=== PATIENT | male | born 1945 | race African-American/Black ===

== ENCOUNTER 2018-09-30 08:20 | Inpatient (IN) | payer MEDICARE, OTHER ==
[2018-09-30] MEDS ORDERED: MAGNESIUM SULFATE/D5W 1 GM/100 ML RTUPB IV ONE (08:57)
[2018-09-30] MEDS ORDERED: IPRATROPIUM/ALBUTEROL 0.5-2.5 MG/3 ML AMPUL NEB ONE (08:57)
[2018-09-30] MEDS ORDERED: ALBUTEROL SULFATE 0.083% NEB 2.5 MG/3 ML AMPUL NEB ONE ×2 (08:58→10:40)
[2018-09-30] MEDS ORDERED: METHYLPREDNISOLONE INJ 125 MG/2 ML SDV IV ONE (08:58)
[2018-09-30 09:18] LABS: ABSOLUTE LYMPHOCYTES (AUTO) 0.5 10^3/uL (0.5-4.7); ABSOLUTE MONOCYTES (AUTO) 0.4 10^3/uL (0.1-1.4); ABSOLUTE NEUT (AUTO) 5.2 10^3/uL (1.7-8.2); BASOPHILS % (AUTO) 0.2 % (0-2); EOSINOPHILS % (AUTO) 0.1 % (0-6); HEMATOCRIT 37.7 % (37.9-51.0); HEMOGLOBIN 12.5 g/dL (13.5-17.0); LYMPHOCYTES % (AUTO) 8.7 % (13-45); MEAN CORPUSCULAR HEMOGLOBIN 31.3 pg (27.0-33.4); MEAN CORPUSCULAR HGB CONC 33.2 g/dL (32.0-36.0); MEAN CORPUSCULAR VOLUME 94 fl (80-97); PLATELET COUNT 172 10^3/uL (150-450); RED CELL DISTRIBUTION WIDTH 14.6 % (11.5-14.0); TOTAL CELLS COUNTED % (AUTO) 100 %; WHITE BLOOD COUNT 6.1 10^3/uL (4.0-10.5)
--- NOTE | 2018-09-30 09:33 | RADIOLOGY REPORT (SQ) ---
EXAM DESCRIPTION: CHEST SINGLE VIEW COMPLETED DATE/TIME: 09/30/2018 9:20 am REASON FOR STUDY: Cough, congestion, wheezing COMPARISON: None. EXAM PARAMETERS: NUMBER OF VIEWS: One view. TECHNIQUE: Single frontal radiographic view of the chest acquired. RADIATION DOSE: NA LIMITATIONS: None. FINDINGS: LUNGS AND PLEURA: Calcified granuloma left lower lobe. No acute infiltrates. No pleural effusion or pneumothorax. MEDIASTINUM AND HILAR STRUCTURES: No masses. Contour normal. HEART AND VASCULAR STRUCTURES: Heart normal in size. Normal vasculature. BONES: No acute findings. HARDWARE: None in the chest. OTHER: No other significant finding. IMPRESSION: No acute infiltrates TECHNICAL DOCUMENTATION: JOB ID: [id number] [employer]- All Rights Reserved Reading location - IP/workstation name: [email or web address]
[2018-09-30 09:43] LABS: ALANINE AMINOTRANSFERASE 40 U/L (21-72); ALBUMIN 3.8 g/dL (3.5-5.0); ALKALINE PHOSPHATASE 94 U/L (38-126); ANION GAP 7 (5-19); ASPARTATE AMINO TRANSFERASE 34 U/L (17-59); BILIRUBIN,DIRECT 0.2 mg/dL (0.0-0.4); BILIRUBIN,TOTAL 0.7 mg/dL (0.2-1.3); BLOOD UREA NITROGEN 14 mg/dL (7-20); CALCIUM 9.7 mg/dL (8.4-10.2); CARBON DIOXIDE 25 mmol/L (22-30); CHLORIDE 108 mmol/L (98-107); CREATINE KINASE 354 U/L (55-170); GLUCOSE 116 mg/dL (75-110); POTASSIUM 3.9 mmol/L (3.6-5.0); SODIUM 139.6 mmol/L (137-145); TOTAL PROTEIN 6.5 g/dL (6.3-8.2)
[2018-09-30 09:55] LABS: CREATINE KINASE MB 3.92 ng/mL (<4.55)
[2018-09-30 10:01] LABS: TROPONIN I < 0.012 ng/mL
[2018-09-30 10:46] LABS: APPEARANCE,URINE CLEAR; BILIRUBIN,URINE NEGATIVE (NEGATIVE); COLOR,URINE YELLOW; GLUCOSE, URINE NEGATIVE (NEGATIVE); KETONES,URINE NEGATIVE (NEGATIVE); LEUKOCYTE ESTERASE,URINE NEGATIVE (NEGATIVE); NITRITE,URINE NEGATIVE (NEGATIVE); PROTEIN,URINE NEGATIVE (NEGATIVE); URINE SPECIFIC GRAVITY 1.015; UROBILINOGEN,URINE NEGATIVE mg/dL (<2.0)
--- NOTE | 2018-09-30 12:31 | ER Document Report ---
Entered by ISAAC LIRA SCRIBE 09/30/18 0904 Acting as scribe for:FLORENTINO RODRIGUES MD ED General - General Chief Complaint: Breathing Difficulty Stated Complaint: WHEEZING/SHORT OF BREATH Time Seen by Provider: 09/30/18 08:42 Primary Care Provider: CATHIE MCKEE [NO LOCAL MD] - Follow up as needed Mode of Arrival: Ambulatory Information source: Patient Notes: Patient is a 73 year old male with HTN, HLD, COPD, BPH presents to the emergency department complaining of shortness of breath onset 2 weeks ago worsening today. Patient states he is short of breath on exertion and also complains of a productive cough with white/light green sputum. He states he has an inhaler at home which only helps temporarily. He also complains of nasal congestion and bilateral lower extremity swelling. He denies any fevers. He reports being on blood pressure medication but has yet to take it this morning. He also states he is on Lasix PRN as needed but has not recently taken any. Patient's PCP is Dr. Ortiz. The patient's family arrived a little later. His daughter is a nurse and reports that his oxygen saturation dropped as low as 73% last night while he was sleeping. He is not on home O2. TRAVEL OUTSIDE OF THE [place] IN LAST 30 DAYS: No - Related Data Allergies/Adverse Reactions: No Known Allergies Allergy (Verified 09/30/18 08:22) Past Medical History - General Information source: Patient - Social History Smoking Status: Current Every Day Smoker Cigarette use (# per day): Yes - 1 PPD for 50+ years Chew tobacco use (# tins/day): No Smoking Education Provided: No Frequency of alcohol use: None Family History: Reviewed & Not Pertinent Review of Systems - Review of Systems Constitutional: No symptoms reported EENT: See HPI, Nose congestion Cardiovascular: No symptoms reported Respiratory: See HPI, Cough, Short of breath Gastrointestinal: No symptoms reported Genitourinary: No symptoms reported Male Genitourinary: No symptoms reported Musculoskeletal: No symptoms reported Skin: No symptoms reported Hematologic/Lymphatic: No symptoms reported Neurological/Psychological: No symptoms reported -: Yes All other systems reviewed and negative Physical Exam - Vital signs Vitals: Temp Pulse Resp BP Pulse Ox 97.8 F 73 22 H 177/85 H 96 09/30/18 08:25 09/30/18 08:25 04/01/19 08:25 09/30/18 08:25 09/30/18 08:25 - Notes Notes: GENERAL: Alert, interacts well. No acute distress. HEAD: Normocephalic, atraumatic. EYES: Pupils equal, round, and reactive to light. Extraocular movements intact. ENT: Oral mucosa moist, tongue midline. NECK: Full range of motion. Supple. Trachea midline. LUNGS: Diffuse wheezes and rhonchi. Inspiratory retractions. No respiratory distress. HEART: Regular rate and rhythm. No murmurs, gallops, or rubs. ABDOMEN: Soft, non-tender. Non-distended. Bowel sounds present in all 4 quadrants. No guarding, rigidity, or rebound. EXTREMITIES: Moves all 4 extremities spontaneously. Pitting edema in the BLE. NEUROLOGICAL: Alert and oriented x3. Normal speech. PSYCH: Normal affect, normal mood. SKIN: Warm, dry, normal turgor. No rashes or lesions noted. Course - Re-evaluation Re-evalutation: 09/30/18 11:33 After 3 breathing treatments, Solu-Medrol, magnesium sulfate IV, the patient is much improved, however he still does have some slight retracting and does still look a little apprehensive. When I have him take a deep breath and cough there is a lot of inspiratory and expiratory wheezes and expiratory rhonchi. - Vital Signs Vital signs: Temp Pulse Resp BP Pulse Ox 97.8 F 73 15 170/90 H 96 09/30/18 08:25 09/30/18 08:25 09/30/18 11:01 09/30/18 11:01 09/30/18 11:01 - Laboratory Result Diagrams: 09/30/18 09:07 09/30/18 09:07 Laboratory results interpreted by me: 09/30/18 09/30/18 09:07 09:07 RBC 4.00 L Hgb 12.5 L Hct 37.7 L RDW 14.6 H Seg Neutrophils % 85.0 H Lymphocytes % 8.7 L Chloride 108 H Glucose 116 H Magnesium 2.5 H Creatine Kinase 354 H - Diagnostic Test Radiology reviewed: Image reviewed, Reports reviewed - Chest x-ray does not show any acute process. - EKG Interpretation by [facility] EKG shows normal: Sinus rhythm, North, Intervals, QRS Complexes, ST-T Waves Rate: Normal - 68 Rhythm: NSR Voltage: Consistant with LV[facility] - Consults Dr. Desai Time consulted: 11:27 Consulted provider: will come to ER Critical Care Note - Critical Care Note Total time excluding time spent on procedures (mins): 35 Discharge - Discharge Clinical Impression: COPD with acute exacerbation, Tobacco dependence due to cigarettes Condition: Fair Disposition: ADMITTED INPATIENT Admitting Provider: Hospitalist Unit Admitted: Telemetry Referrals: LOCALMD,NO [NO LOCAL MD] - Follow up as needed I personally performed the services described in the documentation, reviewed and edited the documentation which was dictated to the scribe in my presence, and it accurately records my words and actions.
--- NOTE | 2018-09-30 12:51 | EKG REPORT ---
SEVERITY:- ABNORMAL ECG - SINUS RHYTHM LEFT VENTRICULAR HYPERTROPHY : Confirmed by: Dagoberto Arzate MD 30-Sep-2018 12:50:02
[2018-09-30] MEDS ORDERED: METHYLPREDNISOLONE INJ 40 MG/1 ML SDV IV SCH (14:00)
--- NOTE | 2018-09-30 14:15 | PDOC H&P ---
History of Present Illness Admission Date/PCP: 09/30/18 12:41 History of Present Illness: VINEET CABRERA is a 73 year old male with a history of COPD and hypertension who presents with a 2-day history of progressive shortness of breath. He has had a little bit of a nonproductive cough. He is not had any fevers. He has not had orthopnea. He denies any wheezing, but he says that he was taking bronchodilators at home and they did help. He said he is been taking all of his COPD medication as prescribed. He is not had any changes in his medication lately. EMS gave him a couple of breathing treatments and a shot of Solu-Medrol and he was put on oxygen because apparently his oxygen saturations were less than 90% for them. Is being admitted for further management. Past Medical History Pulmonary Medical History: Reports: Asthma Social History Smoking Status: Current Every Day Smoker Family History Family History: Reviewed & Not Pertinent, Hyperlipidemia, Hypertension Parental Family History Reviewed: Yes Children Family History Reviewed: Yes Sibling(s) Family History Reviewed.: Yes Medication/Allergy Home Medications: Albuterol Sulfate [Proair Hfa Inhalation Aerosol 8.5 gm Mdi] 1 puff IH Q6HP PRN 09/30/18 Amlodipine Besylate [Norvasc 10 mg Tablet] 10 mg PO DAILY 09/30/18 Finasteride [Proscar 5 mg Tablet] 5 mg PO DAILY 09/30/18 Furosemide [Lasix 40 mg Tablet] 40 mg PO QAM 09/30/18 Ipratropium/Albuterol Sulfate [Duoneb 3 ml Ampul] 3 ml NEB RTQ6HP PRN 09/30/18 Metoprolol Tartrate [Lopressor 50 mg Tablet] 75 mg PO DAILY 09/30/18 Pantoprazole Sodium [Protonix [address] Tablet] 40 mg PO BID 09/30/18 Potassium Chloride [Klor-Con 8] 16 meq PO BID 09/30/18 Pravastatin Sodium [Pravachol] 40 mg PO QHS 09/30/18 Allergies/Adverse Reactions: No Known Allergies Allergy (Verified 09/30/18 08:22) Review of Systems All systems: reviewed and no additional remarkable complaints except as stated - All systems were reviewed and were negative except as noted in the HPI Physical Exam Vital Signs: Temp Pulse Resp BP Pulse Ox 97.8 F 73 18 175/98 H 96 09/30/18 08:25 09/30/18 08:25 09/30/18 14:01 09/30/18 14:01 09/30/18 14:01 Intake & Output 09/29/18 09/30/18 10/01/18 06:59 06:59 06:59 Intake Total 100 Balance 100 Weight 74.9 kg General appearance: PRESENT: cooperative, disheveled, mild distress Head exam: PRESENT: atraumatic, normocephalic Eye exam: PRESENT: EOMI, PERRLA. ABSENT: conjunctival injection, nystagmus, scleral icterus Ear exam: PRESENT: normal external ear exam Mouth exam: PRESENT: moist, neck supple Throat exam: ABSENT: post pharyngeal erythema Neck exam: PRESENT: full ROM. ABSENT: carotid bruit, JVD, lymphadenopathy, meningismus, tenderness, thyromegaly Respiratory exam: PRESENT: accessory muscle use, prolonged expiratory phas, symmetrical, wheezes. ABSENT: chest wall tenderness, crackles, rhonchi, stridor, tachypnea, unlabored Cardiovascular exam: PRESENT: RRR, +S1, +S2 Pulses: PRESENT: normal carotid pulses Vascular exam: PRESENT: normal capillary refill GI/Abdominal exam: PRESENT: normal bowel sounds, soft. ABSENT: distended, guarding, rebound, tenderness Extremities exam: ABSENT: clubbing, pedal edema Musculoskeletal exam: PRESENT: normal inspection. ABSENT: deformity Neurological exam: PRESENT: alert, awake, oriented to person, oriented to place, oriented to time, oriented to situation Psychiatric exam: PRESENT: appropriate affect, normal mood Skin exam: PRESENT: dry, warm Results Laboratory Results: 09/30/18 09:07 09/30/18 09:07 09/30/18 09/30/18 09/30/18 09:07 09:07 10:28 WBC 6.1 RBC 4.00 L Hgb 12.5 L Hct 37.7 L MCV 94 MCH 31.3 MCHC 33.2 RDW 14.6 H Plt Count 172 Seg Neutrophils % 85.0 H Lymphocytes % 8.7 L Monocytes % 6.0 Eosinophils % 0.1 Basophils % 0.2 Absolute Neutrophils 5.2 Absolute Lymphocytes 0.5 Absolute Monocytes 0.4 Absolute Eosinophils 0.0 Absolute Basophils 0.0 Sodium 139.6 Potassium 3.9 Chloride 108 H Carbon Dioxide 25 Anion Gap 7 BUN 14 Creatinine 0.87 Est GFR ( Amer) > 60 Est GFR (Non-Af Amer) > 60 Glucose 116 H Calcium 9.7 Magnesium 2.5 H Total Bilirubin 0.7 AST 34 ALT 40 Alkaline Phosphatase 94 Total Protein 6.5 Albumin 3.8 Urine Color YELLOW Urine Appearance CLEAR Urine pH 7.0 Ur Specific [place] 1.015 Urine Protein NEGATIVE Urine Glucose (UA) NEGATIVE Urine Ketones NEGATIVE Urine Blood NEGATIVE Urine Nitrite NEGATIVE Ur Leukocyte Esterase NEGATIVE Urine WBC (Auto) 1 Urine RBC (Auto) 1 09/30/18 09/30/18 09:07 09:07 Creatine Kinase 354 H CK-MB (CK-2) 3.92 Troponin I < 0.012 Impressions: Chest X-Ray 09/30/18 08:57 IMPRESSION: No acute infiltrates Assessment and Plan - Diagnosis (1) Acute hypoxemic respiratory failure Is this a current diagnosis for this admission?: Yes Plan: He had an SPO2 less than 90% on room air. Continue supplemental O2 to maintain SPO2 greater than 90%. (2) Chronic obstructive pulmonary disease with acute exacerbation Is this a current diagnosis for this admission?: Yes Plan: We will treat with steroids, antibiotics, and bronchodilators. Monitor for response and adjust treatment accordingly. We will continue his home medications once we can get a list of them. (3) Hypertension Qualifiers: Hypertension type: essential hypertension Qualified Code(s): I10 - Essential (primary) hypertension Is this a current diagnosis for this admission?: Yes Plan: He had just taken his medicines right before they took his last blood pressure so we will monitor his pressure to see if he needs further adjustment of his home regimen. - Time Time Spent with patient: 35 or more minutes - Inpatient Certification Based on my medical assessment, after consideration of the patient's comorbidities, presenting symptoms, or acuity I expect that the services needed warrant INPATIENT care.: Yes I certify that my determination is in accordance with my understanding of Medicare's requirements for reasonable and necessary INPATIENT services [42 CFR 412.3e].: Yes Medical Necessity: Need Close Monitoring Due to Risk of Patient Decompensation, Need For Continuous Telemetry Monitoring, Need for Nebulizer Therapy and Monitoring of Response, Risk of Complication if Not Cared For in Hospital
[2018-09-30] MEDS: IPRATROPIUM/ALBUTEROL 0.5-2.5 MG/3 ML AMPUL NEB SCH ×2 (14:52→19:41)
[2018-09-30] MEDS: HEPARIN SOD (PORCINE) 5,000 UNIT/ML 1 ML SYRINGE SUBCUT SCH ×2 (15:19→22:40)
[2018-09-30] MEDS ORDERED: HYDRALAZINE HCL INJ/PF 20 MG/1 ML SDV ONE (17:13)
[2018-09-30] MEDS: METHYLPREDNISOLONE INJ 40 MG/1 ML SDV IV SCH (17:18)
[2018-09-30] MEDS ORDERED: HYDRALAZINE HCL INJ/PF 20 MG/1 ML SDV IV PRN (17:19)
[2018-09-30] MEDS ORDERED: ALBUTEROL SULFATE HFA (90 MCG/PUFF) 200 PUFF/8.5 GM MDI IH PRN (17:39)
[2018-09-30] MEDS ORDERED: IPRATROPIUM/ALBUTEROL 0.5-2.5 MG/3 ML AMPUL NEB PRN (17:39)
[2018-09-30] MEDS ORDERED: POTASSIUM CHLORIDE 16 MEQ PO SCH (18:00)
[2018-09-30] MEDS: PANTOPRAZOLE SODIUM 40 MG TABLET.DR PO SCH (18:01)
--- NOTE | 2018-09-30 18:43 | ADVANCED CARE ---
- Diagnosis (1) Acute hypoxemic respiratory failure Diagnosis Current: Yes (2) Chronic obstructive pulmonary disease with acute exacerbation Diagnosis Current: Yes (3) Hypertension Diagnosis Current: Yes Resuscitation Status: Full Code Discussion: Patient feels that he has a very high quality of life and wants everything done to preserve his life at this point. Time Spent: 10
[2018-09-30] MEDS ORDERED: (PENDING PHARMACY ID) (Pravastatin Sodium [Pravachol] 40 MG) PO SCH (22:00)
[2018-09-30] MEDS: DOXYCYCLINE HYCLATE 100 MG TABLET PO SCH (22:40)
[2018-09-30] MEDS: ATORVASTATIN CALCIUM 10 MG TABLET PO SCH (22:40)
[2018-10-01] MEDS: IPRATROPIUM/ALBUTEROL 0.5-2.5 MG/3 ML AMPUL NEB SCH ×6 (02:59→23:56)
[2018-10-01] MEDS: METHYLPREDNISOLONE INJ 40 MG/1 ML SDV IV SCH ×3 (04:49→17:20)
[2018-10-01] MEDS: HEPARIN SOD (PORCINE) 5,000 UNIT/ML 1 ML SYRINGE SUBCUT SCH ×3 (05:24→21:22)
[2018-10-01 05:36] LABS: HEMATOCRIT 37.5 % (37.9-51.0); HEMOGLOBIN 12.3 g/dL (13.5-17.0); MEAN CORPUSCULAR HEMOGLOBIN 30.9 pg (27.0-33.4); MEAN CORPUSCULAR HGB CONC 32.8 g/dL (32.0-36.0); MEAN CORPUSCULAR VOLUME 94 fl (80-97); PLATELET COUNT 162 10^3/uL (150-450); RED BLOOD COUNT 3.98 10^6/uL (4.35-5.55); RED CELL DISTRIBUTION WIDTH 14.8 % (11.5-14.0); WHITE BLOOD COUNT 6.2 10^3/uL (4.0-10.5)
[2018-10-01 06:06] LABS: ANION GAP 6 (5-19); BLOOD UREA NITROGEN 22 mg/dL (7-20); CALCIUM 9.5 mg/dL (8.4-10.2); CARBON DIOXIDE 26 mmol/L (22-30); CHLORIDE 104 mmol/L (98-107); GLUCOSE 106 mg/dL (75-110); POTASSIUM 4.1 mmol/L (3.6-5.0); SODIUM 136.2 mmol/L (137-145)
[2018-10-01] MEDS ORDERED: ACETAMINOPHEN 325 MG TABLET ONE (10:31)
[2018-10-01] MEDS: ACETAMINOPHEN 325 MG TABLET PO PRN (10:32)
[2018-10-01] MEDS: AMLODIPINE BESYLATE 10 MG TABLET PO SCH (10:33)
[2018-10-01] MEDS: PANTOPRAZOLE SODIUM 40 MG TABLET.DR PO SCH ×2 (10:33→17:20)
[2018-10-01] MEDS: FUROSEMIDE 40 MG TABLET PO SCH (10:33)
[2018-10-01] MEDS: FINASTERIDE 5 MG TABLET PO SCH (10:33)
[2018-10-01] MEDS: METOPROLOL TARTRATE 50 MG TABLET PO SCH (10:33)
[2018-10-01] MEDS: DOXYCYCLINE HYCLATE 100 MG TABLET PO SCH ×2 (10:34→21:22)
[2018-10-01] MEDS ORDERED: LEVALBUTEROL HCL NEB 1.25 MG/3 ML AMPUL NEB PRN (14:43)
[2018-10-01] MEDS: POTASSIUM CHLORIDE 20 MEQ/15 ML UDCUP PO SCH (17:20)
[2018-10-01] MEDS: ATORVASTATIN CALCIUM 10 MG TABLET PO SCH (21:22)
[2018-10-01] MEDS: GUAIFENESIN 600 MG TABLET.SA PO SCH (21:22)
[2018-10-02] MEDS: METHYLPREDNISOLONE INJ 40 MG/1 ML SDV IV SCH ×2 (02:24→10:43)
[2018-10-02 04:03] LABS: HEMATOCRIT 38.2 % (37.9-51.0); HEMOGLOBIN 12.7 g/dL (13.5-17.0); MEAN CORPUSCULAR HEMOGLOBIN 31.3 pg (27.0-33.4); MEAN CORPUSCULAR HGB CONC 33.3 g/dL (32.0-36.0); MEAN CORPUSCULAR VOLUME 94 fl (80-97); PLATELET COUNT 182 10^3/uL (150-450); RED BLOOD COUNT 4.07 10^6/uL (4.35-5.55); RED CELL DISTRIBUTION WIDTH 15.1 % (11.5-14.0); WHITE BLOOD COUNT 6.2 10^3/uL (4.0-10.5)
[2018-10-02] MEDS: IPRATROPIUM/ALBUTEROL 0.5-2.5 MG/3 ML AMPUL NEB SCH ×4 (04:18→16:27)
[2018-10-02 04:28] LABS: ANION GAP 6 (5-19); BLOOD UREA NITROGEN 28 mg/dL (7-20); CALCIUM 9.6 mg/dL (8.4-10.2); CARBON DIOXIDE 26 mmol/L (22-30); CHLORIDE 104 mmol/L (98-107); GLUCOSE 116 mg/dL (75-110); POTASSIUM 4.2 mmol/L (3.6-5.0); SODIUM 135.5 mmol/L (137-145)
[2018-10-02] MEDS: HEPARIN SOD (PORCINE) 5,000 UNIT/ML 1 ML SYRINGE SUBCUT SCH ×2 (05:06→15:10)
[2018-10-02] MEDS: ACETAMINOPHEN 325 MG TABLET PO PRN (08:33)
[2018-10-02] MEDS: FUROSEMIDE 40 MG TABLET PO SCH (08:33)
[2018-10-02] MEDS: POTASSIUM CHLORIDE 20 MEQ/15 ML UDCUP PO SCH (10:39)
[2018-10-02] MEDS: AMLODIPINE BESYLATE 10 MG TABLET PO SCH (10:40)
[2018-10-02] MEDS: METOPROLOL TARTRATE 50 MG TABLET PO SCH (10:40)
[2018-10-02] MEDS: GUAIFENESIN 600 MG TABLET.SA PO SCH (10:41)
[2018-10-02] MEDS: FINASTERIDE 5 MG TABLET PO SCH (10:42)
[2018-10-02] MEDS: PANTOPRAZOLE SODIUM 40 MG TABLET.DR PO SCH (10:42)
[2018-10-02] MEDS: DOXYCYCLINE HYCLATE 100 MG TABLET PO SCH (10:42)
[2018-10-02 16:10] VITALS: BP 131/89
--- NOTE | 2018-10-02 20:01 | PDOC PROGRESS REPORT ---
Subjective Progress Note for:: 10/01/18 Subjective:: Patient is resting comfortably. Still with wheezing and congested cough. Reason For Visit: AECOPD,ACUTE HYPOXIC RESPIRATORY FAILURE Physical Exam Vital Signs: Temp Pulse Resp BP Pulse Ox 98.5 F 74 18 145/78 H 96 10/01/18 20:00 10/01/18 20:00 10/01/18 20:00 10/01/18 20:00 10/01/18 20:00 Intake & Output 09/30/18 10/01/18 10/02/18 06:59 06:59 06:59 Intake Total 460 1620 Balance 460 1620 Weight 74.9 kg General appearance: PRESENT: no acute distress, cooperative, well-developed Head exam: PRESENT: atraumatic, normocephalic Eye exam: PRESENT: conjunctiva pink. ABSENT: scleral icterus Ear exam: PRESENT: normal external ear exam Mouth exam: PRESENT: moist, tongue midline Neck exam: ABSENT: carotid bruit, lymphadenopathy Respiratory exam: PRESENT: rhonchi, symmetrical, unlabored, wheezes. ABSENT: accessory muscle use, rales, tachypnea Cardiovascular exam: PRESENT: RRR, +S1, +S2 GI/Abdominal exam: PRESENT: normal bowel sounds, soft. ABSENT: distended, tenderness Rectal exam: PRESENT: deferred Gentrourinary exam: ABSENT: indwelling catheter Extremities exam: ABSENT: pedal edema Musculoskeletal exam: PRESENT: ambulatory Neurological exam: PRESENT: alert, awake, oriented to person, oriented to place, oriented to time, oriented to situation, CN II-XII grossly intact Psychiatric exam: PRESENT: appropriate affect, normal mood. ABSENT: agitated, anxious Focused psych exam: ABSENT: delusional, restlessness Skin exam: PRESENT: dry, warm. ABSENT: rash Results Laboratory Results: 10/01/18 04:28 10/01/18 04:28 10/01/18 10/01/18 04:28 04:28 WBC 6.2 RBC 3.98 L Hgb 12.3 L Hct 37.5 L MCV 94 MCH 30.9 MCHC 32.8 RDW 14.8 H Plt Count 162 Sodium 136.2 L Potassium 4.1 Chloride 104 Carbon Dioxide 26 Anion Gap 6 BUN 22 H Creatinine 0.87 Est GFR ( Amer) > 60 Est GFR (Non-Af Amer) > 60 Glucose 106 Calcium 9.5 09/30/18 09/30/18 09:07 09:07 Creatine Kinase 354 H CK-MB (CK-2) 3.92 Troponin I < 0.012 Impressions: Chest X-Ray 09/30/18 08:57 IMPRESSION: No acute infiltrates Assessment and Plan - Diagnosis (1) Acute hypoxemic respiratory failure Is this a current diagnosis for this admission?: Yes Plan: The patient is on supplemental oxygen with an effort to wean to room air. He is not in extremis and the breathing is comfortable albeit wheezy. (2) Chronic obstructive pulmonary disease with acute exacerbation Is this a current diagnosis for this admission?: Yes Plan: The patient is on nebulizer therapy and steroids. He is also on antibiotics for the bronchitis component. He seems to be responding well to therapy. (3) COPD with acute bronchitis Is this a current diagnosis for this admission?: Yes Plan: Continue doxycycline. (4) Hypertension Qualifiers: Hypertension type: essential hypertension Qualified Code(s): I10 - Essential (primary) hypertension Is this a current diagnosis for this admission?: Yes Plan: Continue current medical regimen. Blood pressure slightly elevated but this could be due to to his steroids. (5) Tobacco dependence due to cigarettes Is this a current diagnosis for this admission?: Yes Plan: Encourage smoking cessation. - Time Time Spent with patient: 15-24 minutes Smoking Cessation Education: 3 to 10 minutes Medications reviewed and adjusted accordingly: Yes Anticipated discharge: Home
--- NOTE | 2018-10-02 20:09 | PDOC DISCHARGE SUMMARY ---
General - Admit/Disc Date/PCP Admission Date/Primary Care Provider: 09/30/18 12:41 Discharge Date: 10/02/18 - Discharge Diagnosis (1) Acute hypoxemic respiratory failure Is this a current diagnosis for this admission?: Yes Summary: The patient is in fact on room air at rest. He still gets somewhat short of breath with exertion but he has not been on home oxygen in the past. And should not needed after this admission. (2) COPD with acute bronchitis Is this a current diagnosis for this admission?: Yes Summary: Complete antibiotic therapy as ordered. See below for other treatment modifications. (3) Chronic obstructive pulmonary disease with acute exacerbation Is this a current diagnosis for this admission?: Yes Summary: The patient will be discharged on a steroid taper. I will also start him on a scheduled combination inhaler regimen with Symbicort. I have not added Spiriva at this time. He does have a nebulizer machine at home. I did encourage him to use duo nebs on a scheduled basis for several days while the Symbicort kicks in. I encouraged him to continue use of his incentive spirometer at home as well. (4) Hypertension Is this a current diagnosis for this admission?: Yes Summary: Continue current regimen. Once the patient is off of steroids reassess his blood pressure. Defer to primary care provider for adjustments in medication. (5) Tobacco dependence due to cigarettes Is this a current diagnosis for this admission?: Yes Summary: The patient clearly understands the need to stop smoking. He reports that not having had a cigarette for 3-4 days should allow him to continue abstinence. We did discuss the benefits of stopping smoking even with chronic obstructive pulm onary disease. His family will strongly encourage tobacco cessation as well. - Additional Information Resuscitation Status: Full Code Discharge Diet: Regular Discharge Activity: Activity As Tolerated, Balance Activity w/Rest Prescriptions: Budesonide/Formoterol Fumarate [Symbicort Hfa 80-4.5 Mcg Inhaler 6.9 gm] 2 puff IH BID 15 Days #1 inhaler Doxycycline Hyclate [Vibramycin 100 mg Tablet] 100 mg PO Q12 7 Days #14 tablet Prednisone [Deltasone 5 mg Tablet] 5 mg PO ASDIR PRN 18 Days #72 tablet PRN Reason: Home Medications: Albuterol Sulfate [Proair HFA Inhalation Aerosol 8.5 gm MDI] 1 puff IH Q6HP PRN 09/30/18 Amlodipine Besylate [Norvasc 10 mg Tablet] 10 mg PO DAILY 09/30/18 Finasteride [Proscar 5 mg Tablet] 5 mg PO DAILY 09/30/18 Furosemide [Lasix 40 mg Tablet] 40 mg PO QAM 09/30/18 Ipratropium/Albuterol Sulfate [Duoneb 3 ml Ampul] 3 ml NEB RTQ6HP PRN 09/30/18 Metoprolol Tartrate [Lopressor 50 mg Tablet] 75 mg PO DAILY 09/30/18 Pantoprazole Sodium [Protonix [address] Tablet] 40 mg PO BID 09/30/18 Potassium Chloride [Klor-Con 8] 16 meq PO BID 09/30/18 Pravastatin Sodium [Pravachol] 40 mg PO QHS 09/30/18 Budesonide/Formoterol Fumarate [Symbicort Hfa 80-4.5 Mcg Inhaler 6.9 gm] 2 puff IH BID 15 Days #1 inhaler 10/02/18 Doxycycline Hyclate [Vibramycin 100 mg Tablet] 100 mg PO Q12 7 Days #14 tablet 10/02/18 Prednisone [Deltasone 5 mg Tablet] 5 mg PO ASDIR PRN 18 Days #72 tablet 10/02/18 History of Present Illness Patient complains of: Shortness of breath History of Present Illness: VINEET CABRERA is a 73 year old male who is a current smoker and has a history of chronic obstructive pulmonary disease and hypertension. Over the last several days prior to admission he began to have a nonproductive cough with increasing shortness of breath. Despite using his medications as well as the rescue inhalers he did not experience any improvement. EMS was called. Upon arrival in the emergency department he required supplemental oxygen and was referred to the hospital service for admission. Hospital Course Hospital Course: The patient had a reasonable hospital course. There were no complications. His white blood cell count was never elevated. He was afebrile. He did produce some white sputum but Gram stain revealed lots of epithelial cells and this was considered an inadequate specimen. With the steroids and inhaler regimen he began to improve. He was able to wean to room air. He still is slightly wheezy and has a congested cough but he will be discharged home to complete antibiotics, steroid taper and I have initiated chronic dual medication inhaler therapy with Symbicort. He does have a nebulizer machine at home with supplies to use as needed. Physical Exam Vital Signs: Temp Pulse Resp BP Pulse Ox 98.4 F 83 16 147/64 H 93 10/02/18 11:20 10/02/18 12:18 10/02/18 12:18 10/02/18 11:20 10/02/18 12:18 Intake & Output 10/01/18 10/02/18 10/03/18 06:59 06:59 06:59 Intake Total 460 2097 837 Balance 460 2097 837 Weight 74.9 kg 55.7 kg General appearance: PRESENT: no acute distress, cooperative, well-developed Head exam: PRESENT: atraumatic, normocephalic Eye exam: PRESENT: conjunctiva pink. ABSENT: scleral icterus Ear exam: PRESENT: normal external ear exam Respiratory exam: PRESENT: rhonchi - Sparse bilateral, symmetrical, unlabored, wheezes - Scattered expiratory bilaterally. ABSENT: accessory muscle use, prolonged expiratory phas, rales, tachypnea Cardiovascular exam: PRESENT: RRR, +S1, +S2 GI/Abdominal exam: PRESENT: normal bowel sounds, soft. ABSENT: distended, tenderness Rectal exam: PRESENT: deferred Neurological exam: PRESENT: alert, awake, oriented to person, oriented to place, oriented to time, oriented to situation, CN II-XII grossly intact Psychiatric exam: PRESENT: appropriate affect, normal mood. ABSENT: agitated, anxious Focused psych exam: ABSENT: delusional, restlessness Results Laboratory Results: 10/02/18 03:15 10/02/18 03:15 10/02/18 10/02/18 03:15 03:15 WBC 6.2 RBC 4.07 L Hgb 12.7 L Hct 38.2 MCV 94 MCH 31.3 MCHC 33.3 RDW 15.1 H Plt Count 182 Sodium 135.5 L Potassium 4.2 Chloride 104 Carbon Dioxide 26 Anion Gap 6 BUN 28 H Creatinine 1.00 Est GFR ( Amer) > 60 Est GFR (Non-Af Amer) > 60 Glucose 116 H Calcium 9.6 10/01/18 10:25 Sputum Gram Stain - Final 10/01/18 10:25 Sputum Sputum Culture - Final 09/30/18 09/30/18 09:07 09:07 Creatine Kinase 354 H CK-MB (CK-2) 3.92 Troponin I < 0.012 Impressions: Chest X-Ray 09/30/18 08:57 IMPRESSION: No acute infiltrates Qualifiers - * PATIENT BEING DISCHARGED WITH ANY OF THE FOLLOWING DIAGNOSIS: No Plan Discharge Plan: Discharged home. Follow-up with primary care provider. Initiate new medications as directed. Time Spent: Greater than 30 Minutes
--- NOTE | 2018-10-22 22:39 | Physician Advisory Note ---
Physician Advisor ProgressNote .: Pursuant to the plan for [facility], I have reviewed the medical record for this patient. Physician Advisor Statement: Asked by environmental professional to review to confirm whether or not pt met sufficient criteria for dx of Ac Resp Failure. Dx of Ac REsp Failure requires evidence of both (1) increased work of breathing and (2) hypoxemia (different than baseline). This pt, although he had COPD, did not require O2 at home, did not have chronic hypoxemic respiratory failure. He met both criteria for Ac Resp FAilure per the documentation in chart (& this was tx'd this adm), so this dx was appropriate for this pt: 1. Increased work of breathing: ED dr documented "inspiratory retractions", and that after 3 nebs & IV Mag, he was "much improved, but still slightly retracting...". H&P also states he was in "mild distress" with accessory muscle use at time of admission. 2. Hypoxemia: ED dr documented pt didn't require O2 at home. ED dr also stated pt's daughter, a nurse, noted hypoxemia as low as 73% the night before presentation while sleeping. Nursing note at 06:27 states pt's O2 sat was 89% at 04:00, & that this was not while sleeping: "Pt reported prior to VS he was washing up at the sink and just had returned from restroom". H&P states "he was put on O2 b/c apparently his O2 sats were <90% for them." At 11:35, nursing note documents pt was placed on 2L O2 "per Dr. Foreman". At 12:37, nurse documented that after walking to/from BA on RA, his sat was down to 90% on RA; it increased to 94% after sitting down, & he was then placed back on 2L O2. CK
== END 2018-10-02 16:40 | disposition home or self-care (01) | DRG 190 ==
LOC: ER 08:20 → EH 12:41 → 4N 14:32
PROVIDERS: ADMIT Family Medicine; ATTEND Family Medicine
DX: J44.1 Chronic obstructive pulmonary disease with (acute) exacerbation (principal); J96.01 Acute respiratory failure with hypoxia; J20.9 Acute bronchitis, unspecified; J44.0 Chronic obstructive pulmonary disease with (acute) lower respiratory infection; F17.210 Nicotine dependence, cigarettes, uncomplicated; I10 Essential (primary) hypertension; Z82.49 Family history of ischemic heart disease and other diseases of the circulatory system; Z79.51 Long term (current) use of inhaled steroids; Z79.899 Other long term (current) drug therapy
CPT/HCPCS: 36415; 71045; 80048; 80053; 81001; 82550; 82553; 83735; 84484; 85025; 85027; 87070; 87077; 87186; 87205; 93005; 93010; 94640; 96365; 96375; 99291; J0360; J1644; J2920; J2930; J3475; J3490; J7620